=== PATIENT | female | born 1980 | race Caucasian/White ===

== ENCOUNTER 2021-05-29 10:03 | Emergency (ER) | payer OTHER, SELFPAY ==
--- NOTE | 2021-05-29 10:05 | ED.URI ---
HPI - URI/Sore Throat General Chief Complaint: Upper Respiratory Infection Stated Complaint: sore throat Time Seen by Provider: 05/29/21 10:08 Source: patient and RN notes reviewed History of Present Illness HPI Narrative: Patient is a 40-year-old female who presents the urgent care with complaints of a sore throat since last week. Patient denies of any fever, nausea, vomiting. Patient denies of cough. Patient states that all of her children had croup last week but no one was diagnosed with bacterial infection. Denies of any known exposure to strep or Covid. Patient is Covid vaccinated. Patient has been taking Benites's for the sore throat. No other acute complaints. No acute distress noted. Patient read the plan of care. Some parts of this dictation were generated by voice recognition software and may contain typographical and/or grammatical inaccuracies. Related Data Home Medications Medication Instructions Recorded Confirmed norgestimate-ethinyl estradiol tablet 07/25/19 [Estarylla] Allergies Allergy/AdvReac Type Severity Reaction Status Date / Time No Known Allergies Allergy Unknown Verified 05/29/21 10:12 Review of Systems Review of Systems: CONSTITUTIONAL: Denies fever, chills, or sweats. EYES: Denies visual changes, redness, or discharge. ENT: Denies rhinorrhea, congestion, otalgia. Reports of sore throat CARDIOVASCULAR: Denies chest pain, palpitations, or edema. RESPIRATORY: Denies cough or dyspnea. GASTROINTESTINAL: Denies abdominal pain, nausea, vomiting, or diarrhea. GENITOURINARY: Denies dysuria or hematuria. SKIN: Denies rash or itching. MUSCULOSKELETAL: Denies back pain, joint pain, or myalgia. NEUROLOGIC: Denies headache, numbness, or weakness. All other systems reviewed are negative, except as documented in HPI. [facility] Past Medical History Medical History (Updated 05/29/21 @ 10:25 by JOHN Simms) HELLP syndrome 2014 Ulcerative proctitis Surgical History Surgical History (Updated 07/25/19 @ 09:42 by JOHN Kate) H/O colonoscopy H/O: X2 Family History Family History (Updated 02/04/16 @ 23:19 by DOCTOR UNKNOWN) Grandparent Cerebrovascular accident Family history of lung cancer Family history of malignant neoplasm of breast Mother Family history of diabetes mellitus in first degree relative Social History Social History (Updated 07/25/19 @ 09:42 by JOHN Kate) Smoking status: Never smoker Alcohol intake: current Alcohol use details: Socially Substance use: never Gender identity (if verbalized by the patient): Female Comments At the time of my signature, I reviewed and agree with the nursing past medical, surgical, social, and family history. There is no relevant family history pertinent to the patient complaint. Exam Narrative: GENERAL: This is a well-nourished, well-developed patient, in no apparent distress. HEAD: normocephalic, atraumatic. EYES: PERRL. Sclera clear/white. Vision is grossly intact. EARS: External ears normal, auditory canals clear and without drainage, mild fluid noted behind bilateral TMs without otitis. TMs normal without perforation. Hearing grossly intact. NOSE: External nose normal with no obvious nasal discharge, nares without redness, no rhinorrhea. THROAT: Mucous membranes moist, posterior pharynx clear. Mild postnasal drainage. NECK: Neck supple CARDIOVASCULAR: Regular rate and rhythm without murmurs, gallops, or rubs. RESPIRATORY: Clear to auscultation. Breath sounds equal bilaterally. No wheezes, rales, or rhonchi. SKIN: warm, intact with no suspicious lesions or rash, good texture and turgor. NEURO: awake, alert, and oriented to person, place and time. There were no obvious focal neurologic abnormalities. EXTREMITIES: No clubbing, cyanosis, or edema. Course Vital Signs Vital signs: Vital Signs Temperature 99.4 F 05/29/21 10:08 Pulse Rate 106 H 05/29/21 10:08
[2021-05-29 10:08] VITALS: BP 153/93; PULSE 106; RESP 14; TEMP 37.4; O2SAT 100
== END 2021-05-29 10:30 | disposition home or self-care (01) ==
PROVIDERS: Emergency Provider Nurse Practitioner Family
DX: J02.9 Acute pharyngitis, unspecified (principal)
CPT/HCPCS: 87081; 87880; 99213; G0463

== ENCOUNTER → 2022-07-21 11:18 | Outpatient (CLI) | payer OTHER, SELFPAY ==
--- NOTE | ~2022-07-21 | US_ITS ---
EXAMINATION: US thyroid DATE: 07/21/2022 11:44 INDICATION: Nontoxic single thyroid nodule. TECHNIQUE: Multiple ultrasound images of the thyroid were obtained. COMPARISON: None. FINDINGS: The right thyroid lobe measures 4.6 x 0.9 x 1.0 cm. The left thyroid lobe measures 4.1 x 0.8 x 1.1 c m. In the right thyroid lobe, there is a 2 mm nodule. In the right thyroid isthmus, there is a 4 mm nodule. In the left thyroid lobe, there is a 1.3 cm solid, hypoechoic, wider than tall nodule with lo bulated margin and punctate echogenic focus (TI-RADS TR5). In the left thyroid lobe, there is a 10 mm solid, hypoechoic, wider than tall nodule with smooth margin without echogenic foci (TR4). IMPRESSION: 1. Multinodular goiter. Ultrasound-guided fine-needle aspiration of the 1.3 cm left thyroid nodule is recommended. Reviewed, dictated and finalized at location A. O WORKER
== END ==
PROVIDERS: PCP Advanced Practice Midwife; Visit Provider Advanced Practice Midwife
DX: E04.2 Nontoxic multinodular goiter (principal)
CPT/HCPCS: 76536

== ENCOUNTER 2024-05-12 13:47 | Outpatient (CLI) | payer OTHER, SELFPAY ==
--- NOTE | ~2024-05-12 | MM_ITS ---
EXAMINATION: MM screening annabelle BI w gala HISTORY: Screening TECHNIQUE: Craniocaudal and mediolateral oblique 3-D tomosynthesis images were obtained and synthetic 2-D images were generated. CAD analysis was submitted and interpreted. COMPARISON: 12/11/2022 BREAST PARENCHYMAL COMPOSITION: Dense: The breasts are heterogeneously dense, which may obscure small masses FINDINGS: There is no evidence of suspicious mass, calcification, or architectural distortion to sugg est malignancy in either breast. There has been no suspicious interval change. IMPRESSION: 1. No mammographic evidence of malignancy. 2. Recommend routine screening mammography in one year. BI-RADS Category 1: Negative Reviewed, dictated and finalized at location B. NEERING TECHNICIAN PARKING
== END 2024-05-12 13:48 | disposition home or self-care (01) ==
PROVIDERS: PCP Obstetrics & Gynecology Gynecology; Visit Provider Obstetrics & Gynecology Gynecology
DX: Z12.31 Encounter for screening mammogram for malignant neoplasm of breast (principal)
CPT/HCPCS: 77063; 77067

== ENCOUNTER 2025-03-17 08:08 | Emergency (ER) | payer OTHER, SELFPAY ==
[2025-03-17 08:17] VITALS: BP 154/96; PULSE 86; RESP 16; TEMP 36.9; O2SAT 100
--- OUTSIDE RECORDS SUMMARY | 2025-03-17 08:33 | XMS_ITS | Encounter Summary ---
Author Organization [facility] Address [address] [place] [address] Care Team Providers Care Solder Leveler Printed Circuit Boards Name Role Phone Leatha Wilson MD Primary Care Provider [phone] Encounter Details Date Type Department Care Team (Late st Contact Info) Description 01/19/2022 Lab Requisition [facility] Care DermPath Lab [address] [place] [address] Gerber Mojica MD [address] [place] [address] Social History Tobacco Use Types Packs/Day Years Used Date Smoking Tobacco: Never Alcohol Use Standard Drinks/Week Comments Yes 0 (1 standard drink = 0.6 oz pur e alcohol) very rarely when not Comments No Sex and Gender Information Value Date Recorded Sex Assigned at Not on file Legal Sex Female 7:14 AM CDT Gender Identity Not on file Sexual Orientation Not on file documented as of this encounter Functional Status * Is person deaf or have serious hearing difficulty? Answer Date of Assessment Author No 09/14/2015 9:47 AM Marii Chopra RN * Is person blind or have serious difficulty seeing? Answer Date of Assessment Author No 09/14/2015 9:47 AM Marii Chopra RN * Does person have serious difficulty walking/climbing stairs? Answer Date of Assessment Author No 09/14/2015 9:47 AM Marii Chopra RN * Does person have difficulty dressing/bathing? Answer Date of Assessment Author No 09/14/2015 9:47 AM Marii Chopra RN * Does person have difficulty doing errands alone? Answer Date of Assessment Author No 09/14/2015 9:47 AM Marii Chopra RN documented as of this encounter Mental Status * Does person have difficulty concentrating/remembering/making decisions? Answer Entry Date Author No 09/14/2015 9:47 AM Marii Chopra RN documented in this encounter Plan of Treatment Not on file documented as of this encounter Procedures Procedure Name Priority Date/Time Associated Diagnosis Comments DERMATOPATHOLOGY Routine 01/18/2022 3:33 AM CDT documented in this encounter Results * DERMATOPATHOLOGY (01/18/2022 3:33 AM CDT) Case Report Dermatopathology Report Case: [id number] Authorizing Provider: Gerber Mojica MD Collected: 01/18/2022 03:33 AM Ordering Location: [facility] DermPath Lab Received: 01/19/2022 02:53 PM Pathologist: Mariela Sargent MD Specimens: A) - Skin, nasal bridge above bulb B) - Skin, left upper paraspinal back 2 12:49 PM CDT DERMATOPATHOLOGY LABORATORY Final Diagnosis Specimen A. 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 SKIN, left upper paraspinal back: COMPOUND NEVUS WITH CONGENITAL FEATURES (D22.5) 2 12:49 PM CDT DERMATOPATHOLOGY LABORATORY at 1249 CDT Clinical History A: R/O BCC. B: R/O dys nevus. 12:49 PM CDT DERMATOPATHOLOGY LABORATORY Gross Description Specimen A: Received is one formalin filled container labeled with the patient's name and designated nasal bridge above bulb. The specimen consists of a shave biopsy measuring [id number]. Jar 0. Specimen B: Received is one formalin filled container labeled with the patient's name and designated left upper paraspinal back. The specimen consists of a shave biopsy measuring [id number]. Jar 0. 2 12:49 PM T DERMATOPATHOLOGY LABORATORY Microscopic Description Specimen A. SKIN, nasal bridge above bulb: Sections show a lobular tumor composed of aggregates of epithelial cells extending from the epidermis into the dermis. The aggregates are composed of squamoid cells showing variable glycogen vacuolation (pale-staining cytoplasm). The tumor stains with CD34 but is negative for BerEP4. Mib-1 reveals a low proliferative index within the lesion. Additional deeper sections were obtained and reviewed. Specimen B. SKIN, left upper paraspinal back: There are nests of melanocytes at the dermal-epidermal junction and within the dermis. Some melanocytes are splayed between collagen bundles and are localized around adnexal structures. 2 12:49 PM T DERMATOPATHOLOGY LABORATORY Disclaimer An external and internal positive and negative controls are appropriate for the histochemical, immunohistochemical and immunofluorescence stain(s) in this case (if any), except where stated explicitly. The performance characteristics of the stain(s) cited in this report were developed and its performance characteristic determined by the Dermatopathology Laboratory at [facility], directed by Dr. Caroline Ingram. These tests need not be, and therefore are not, approved by the [place] Food and Drug Administration. The tests are used for clinical purposes. Billing Codes Specimen Charges Stain Charges 19276 13781 1 1 40619 36763 16964 1 1 1 2 12:49 PM CDT DERMATOPATHOLOGY LABORATORY Embedded Images 2 12:49 PM CDT DERMATOPATHOLOGY LABORATORY Pathology/Cytology TISSUE SPECIMEN FROM SKIN / Unknown 01/18/2022 3:33 AM CDT 01/19/2022 2:53 PM CDT Miscellaneous samples (specimen) TISSUE SPECIMEN FROM SKIN / Unknown 01/18/2022 3:33 AM CDT 01/19/2022 2:53 PM CDT Gerber Mojica MD LAB - PATHOLOGY/CYTOLOGY ORD ERABLES Final Result DERMATOPATHOLOGY LABORATORY [facility] - Department of Dermatology [address] [phone] documented in this encounter Visit Diagnoses Not on filedocumented in this encounter Care Teams Solder Leveler Printed Circuit Boards Relationship Specialty Start Date End Date Leatha Wilson MD PCP - General Family Medicine 09/14/15 documented as of this encounter
--- OUTSIDE RECORDS SUMMARY | 2025-03-17 08:33 | XMS_ITS | Clinical Summary ---
Author Organization [facility] Address [address] [place] [address] Care Team Providers Care Journeyman Molder Name Role Phone Leatha Wilson MD Primary Care Provider [phone]- [phone] Source Comments [facility],non-owned Affiliates and Associated Physician Practices is amultiple site organization consisting of ambulatory clinics and hospital sitesin [place], [place], [place] and [place]. This disclosure is being madepursuant to the Care Everywhere program and may not contain all information available regarding this patient. Last updated 18.[facility] Allergies No known active allergies Medications * Be aware that medications may not be up to date on this document. Alwaysverify current medications with the patient. oxyCODONE-aceta minophen (PERCOCET) 5-325 MG tablet Take 1 Tab by mouth every 4 hours as needed 60 Tab 0 6 Active Ughzxnul-Yww-Ow -FA ( VITAMIN WITH IRON) tablet Take 1 Tab by mouth once daily 90 Tab 3 6 Active lanolin (LANOLIN) ointment Apply to affected area as needed for Dry Skin 1 g 1 6 Active ibuprofen (MOTRIN) 600 MG tablet Take 1 Tab by mouth every 6 hours as needed for Pain 60 Tab 0 6 Active docusate sodium (COLACE) 100 MG capsule Take 1 Cap by mouth 2 times daily 90 Cap 3 6 Active ferrous sulfate 325 (65 FE) MG tablet Take 1 Tab by mouth daily with breakfast 90 Tab 3 6 Active Active Problems Patient Care Coordination No te Formatting of this note migh t be different from the original. [place] [facility] Problem Noted Date Diagnosed Date H/O section 09/14/2015 H/O HELLP syndrome, currently 6 Rh negative, antepartum 07/17/2013 Overview (10/02/2015): 2015 IMO Updt Supervision of other high risk , antepa rtum 04/01/2013 Overview (09/14/2015): state Status post delivery Resolved Problems Problem Noted Date Diagnosed Date Resolved Date Preeclampsia 09/22/2013 09/14/2015 Dichorionic diamniotic twin gestation 07/17/2013 09/14/2015 Overview (07/17/2013): Concordant growth on 07/11/2013 Baby A: 729 gm, Baby B 696 gm Twins 04/01/2013 07/17/2013 resulting from in vitro fertilization 04/01/2013 09/14/2015 Immunizations Immunization Administration Dates Next Due TDAP (7yrs+) 09/30/2013 Social History Tobacco Use Types Packs/Day Years Used Date Smoking Tobacco: Never Alcohol Use Standard Drinks/Week Comments Yes 0 (1 standard drink = 0.6 oz pur e alcohol) very rarely when not Comments No Sex and Gender Information Value Date Recorded Sex Assigned at Not on file Legal Sex Female 7:14 AM CDT Gender Identity Not on file Sexual Orientation Not on file Last Filed Vital Signs Vital Sign Reading Time Taken Comments Blood Pressure 112/74 10/28/2015 12:56 PM CDT Pulse 72 10/28/2015 12:56 PM CDT Temperature 36.8 C (98.2 F) 09/18/2015 8:50 AM ORTHOTIST PROSTHETIST Respiratory Rate 16 10/28/2015 12:56 PM CDT Oxygen Saturation 100% 09/17/2015 11:00 PM ORTHOTIST PROSTHETIST Inhaled Oxygen Concentration - - Weight 55.8 kg (123 lb) 10/28/2015 12:56 PM CDT Height 160 cm (5' 3) 10/28/2015 12:56 PM CDT Body Mass Index 21.79 10/28/2015 12:56 PM CDT Plan of Treatment Health Maintenance Due Date Last Done Comments LIPID TESTING 1982 MAMMOGRAM 1982 HEPATITIS C SCREENING 05/29/2000 HEPATITIS B VACCINE (1 of 3 - 19+ 3-dose series) 2001 HPV VACCINE (1 - 3-dose SCDM series) 2009 DTAP/TDAP/TD VACCINES (2 - T d or Tdap) 10/01/2023 09/30/2013 DEPRESSION SCREENING 07/09/2024 COVID-19 VACCINE (1 - 2023-2 5 season) 2025 INFLUENZA VACCINE (#1) 2025 ZOSTER VACCINE (1 of 2) 2032 HIV SCREENING Completed 03/18/2015, 07/10/2013 HIB VACCINE Aged Out No longer eligi ble based on patient's age to complete this topic MENINGOCOCCAL (Group B) VACCINE SHARED DECISION-MAKING Aged Out No longer eligible based on patient's age to complete this topic MENINGOCOCCAL GROUPS A/C/Y/W VACCINE Aged Out No longer eligible b ased on patient's age to complete this topic PNEUMOCOCCAL VACCINE Aged Out No long er eligible based on patient's age to complete this topic Procedures Procedure Name Priority Date/Time Associated Diagnosis Comments HIV-1 HIV-2 ANTIGEN/ANTIBODY Routine 03/18/2015 2:38 PM CDT from Last 3 Months or Most Recently Relevant to Health Maintenance Results * HIV-1 HIV-2 ANTIGEN/ANTIBODY (03/18/2015 2:38 PM CDT) Pathologist [facility] HIV Antigen/Antibody 4th Generation NON-REACT SCHUYLER NON-REACT SCHUYLER QUEST (SLU) Comment: A Nonreactive HIV Ag/Ab result does not exclude HIV infection since the time frame for seroconversion is variable. If acute HIV infection is suspected, a HIV-1 RNA Qualitative TMA test is recommended. PLEASE NOTE: This information has been disclosed to you from records whose confidentiality may be protected by state law. If your state requires such protection, then the state law prohibits you from making any further disclosure of the information without the specific written consent of the person to whom it pertains, or as otherwise permitted by law. A general authorization for the release of medical or other information is NOT sufficient for this purpose. The performance of this assay has not been clinically validated in patients less than 2 years old. For additional information please refer to http://education.OneFineMeal/faq/JWW195 (This link is being provided for informational/ educational purposes only.) REPORT COMMENT: PREFERRED LAB:->[facility]; PREFERRED LAB:->[facility] FASTING:UNKNOWN Test Performed at[facility] [address] [place] [address] STEVE GO DO,MPH 03/18/2015 2:38 PM CDT 03/18/2015 2:40 PM CDT us Historical Provider LAB - HEMATOLOGY ORDERABL ES Edited Result - Final [facility]) [id number] from Last 3 Months or Most Recently Relevant to Health Maintenance Insurance T AETNA Advance Directives * Full Code (Latest Code Status on File) Date Activated Date Inactivated Comments 09/14/2015 3:12 PM 09/18/2015 2:09 PM * Full Code Date Activated Date Inactivated Comments 09/14/2015 9:04 AM 09/14/2015 12:59 PM * Full Code Date Activated Date Inactivated Comments 09/23/2013 3:11 AM 09/23/2013 4:23 AM * Full Code Date Activated Date Inactivated Comments 09/22/2013 12:56 PM 09/23/2013 3:11 AM Care Teams Journeyman Molder Relationship Specialty Start Date End Date Leatha Wilson MD PCP - General Family Medicine 09/14/15
--- OUTSIDE RECORDS SUMMARY | 2025-03-17 08:33 | XMS_ITS | Clinical Summary ---
Author Organization [facility] Address [address] [facility] [address], [address] [address] Phone Care Team Providers Care Mechanical Engineering Coop Name Role Phone Bobbi Carrizales Primary Care Provider + Allergies No known active allergies Medications Norgestimate-Eth Estradiol 0.25-35 MG-MCG Tablet Take 1 Tab by mouth daily. Active Active Problems Problem Noted Date Diagnosed Date Ulcerative proctitis 10/17/2019 Immunizations Immunization Administration Dates Next Due TDAP Vaccine 09/30/2013 Family History Medical History Relation Name Comments Cancer Maternal Grandmother breast Diabetes Mother Other-comment Paternal Grandmother Benign colon tumor. Relation Name Status Comments Father Alive Maternal Grandmother Mother Alive Paternal Grandmother Social History Tobacco Use Types Packs/Day Years Used Date Smoking Tobacco: Never Smokeless Tobacco: Never Tobacco Cessation:Counseling Given: Yes Alcohol Use Standard Drinks/Week Comments Not Currently 0 (1 standard drink = 0.6 oz pur e alcohol) [facility] Utilities Answer Date Recorded In the past 12 months has [facility], gas, oil, or water company threatened to shut off services in your home? No 12/31/2023 Social Connection and Isolation Panel Answer Date Recorded In a typical week, how many times do you talk on the phone with family, friends, or neighbors? More than three times a week 12/31/2023 How often do you get togethe r with friends or relatives? Once a week 12/31/2023 How often do you attend chur or jainism services? Patient declined 12/31/2023 Do you belong to any clubs o r organizations such as denominational groups, unions, fraternal or athletic groups, or school groups? Yes 12/31/2023 How often do you attend meet ings of the clubs or organizations you belong to? Patient declined 12/31/2023 Are you , , di vorced, , never , or living with a partner? 12/31/2023 AUDIT-C Answer Date Recorded Q1: How often do you have a drink containing alcohol? Never 12/31/2023 Q2: How many drinks containi ng alcohol do you have on a typical day when you are drinking? Patient does not drink Q3: How often do you have si x or more drinks on one occasion? Never 12/31/2023 Overall Financial Resource Strain (CARDIA) Answe r Date Recorded How hard is it for you to pa y for the very basics like food, housing, medical care, and heating? Not very hard 12/31/2023 PHQ-2 Answer Date Recorded Total Score - Questions 1-9 0 06/09 [facility] of Occupat ional [facility] - Occupational Stress Questionnaire Answer Date Recorded Do you feel stress - tense, restless, nervous, or anxious, or unable to sleep at night because your mind is troubled all the time - these days? To some extent 12/31/2023 Exercise Vital Sign Answer Date Recorde d On average, how many days pe r week do you engage in moderate to strenuous exercise (like a brisk walk)? Patient declined On average, how many minutes do you engage in exercise at this level? Patient declined 12/31/2023 Hunger Vital Sign Answer Date Recorded Within the past 12 months, y ou worried that your food would run out before you got the money to buy more. Never true 12/31/19 Within the past 12 months, t he food you bought just didn't last and you didn't have money to get more. Never true 12/31/2023 PRAPARE - Transportation Answer Date Re corded In the past 12 months, has l ack of transportation kept you from medical appointments or from getting medications? No 12/08 In the past 12 months, has l ack of transportation kept you from meetings, work, or from getting things needed for daily living? No 12/31/2023 Housing Stability Vital Sign Answer Omar e Recorded In the last 12 months, was t here a time when you were not able to pay the mortgage or rent on time? No 12/31/2023 In the past 12 months, how m any times have you moved where you were living? 0 12/31/2023 At any time in the past 12 m [facility], were you homeless or living in a group home (including now)? No 12/31/2023 Education Answer Date Recorded What is the highest level of school you have completed or the highest degree you have received? 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 Gender Identity Not on file Sexual Orientation Not on file Last Filed Vital Signs Vital Sign Reading Time Taken Comments Blood Pressure 124/82 01/02/2024 1:48 PM CDT Pulse 91 01/02/2024 1:48 PM CDT Temperature 36.7 C (98 F) 01/02/2024 1:48 PM CDT Respiratory Rate 18 09/21/2022 1:09 PM CDT Oxygen Saturation 98% 01/02/2024 1:48 PM CDT Inhaled Oxygen Concentration - - Weight 60.8 kg (134 lb) 01/02/2024 1:48 PM CDT Height 160 cm (5' 3) 01/02/2024 1:48 PM CDT Body Mass Index 23.74 01/02/2024 1:48 PM CDT Plan of Treatment Health Maintenance Due Date Last Done Comments Mammogram 1982 Hepatitis B Immunization (1 of 3 - 19+ 3-dose series) 2001 Pap Smear 2003 Human Papillomavirus (HPV) Immunization (1 - 3-dose SCDM series) 2009 Discussion re Starting/Frequency of Mammograms 2022 Colonoscopy 10/21/2022 10/21/2021, 07/11/2019 Colorectal Cancer Screening 10/21/2022 Td Immunization Every 10 Yea rs (Adults With 1 Tdap) 10/01/2023 09/30/2013 Influenza Immunization (#1) 2025 SARS-COV-2 Immunization ( season) 2025 12/24/2020, 12/03/2020 Cervical Cancer Screening (CCS) 07/10/2028 HPV/Cotest 07/10/2028 07/10/2023 Respiratory Syncytial Virus (RSV) Immunization (Adult) (1 - 1-dose 75+ series) 2057 DTaP/Tdap/Td Immunization Discontinued 09/30/2013 Hepatitis C Virus (HCV) Screening Discontinued Meningococcal Immunization (ACWY) Aged Out No longer eligible based on patient's age to complete this topic Pneumococcal Immunization Combined Aged Out No longer eligible based on patient's age to complete this topic Rotavirus Immunization Aged Out No lo nger eligible based on patient's age to complete this topic Insurance People to Remember Care Teams Mechanical Engineering Coop Relationship Specialty Start Date End Date Bobbi Carrizales [address] [place] [address] PCP - General Physician Heel Gouger 06/27/21
--- OUTSIDE RECORDS SUMMARY | 2025-03-17 08:33 | XMS_ITS | Patient Health Record ---
Author Organization [facility] Address [address] [place] [address] Care Team Providers Care Chief Physical Therapist Name Role Phone Nat MENDENHALL, [facility] [phone] Reason For Referral No Information Medications Medication SIG (Take, Route, Fr equency, Duration) Notes Start Date End Date Status NIFEdipine ER 30 MG 1 tablet Orally Once a day Active Problems Problem Type SNOMED Code ICD Code Onset Dates Problem Status W/U Status Risk Notes Problem Severe pre-eclampsi a, with delivery (642.51) Active confirmed HELLP syndrome- - The patient presented with the symptoms highlighted above, with marked resolution and improvement. My impression is that her kidney function is normal and will remain so. Furthermore, I suspect the hematologic manifestations will have completely reversed. Whether she has persistent hypertension due to remains to be determined. In the interim, she will be continued on long acting Nifedipine with the drug stopped at a later date should her blood pressure remain normal and/or fall. Plan Of Treatment No Information Insurance Providers Payer Name Payer Address Payer Phone Subscriber Number Group Number Insured Name Patient Relationship to Insured Coverage Start Date Coverage End Date [facility] [address] [place] [address] [id number] Mi Barrow Self - patient is the insured
--- OUTSIDE RECORDS SUMMARY | 2025-03-17 08:36 | XMS_ITS | Clinical Summary ---
Author Organization [facility] Address [address] [place] [address] Care Team Providers Care Slab Depiler Operator Name Role Phone Harlan Shelton MD Primary Care Provider [phone] Allergies No known active allergies Medications ESTARYLLA 0.25-35 MG-MCG tablet daily. 08/18/2022 Active amoxicillin-clav ulanate (AUGMENTIN) 875-125 MG tablet Take 1 tablet (875 mg total) by mouth 2 (two) times daily. 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 H/O HELLP syndrome, currently ([facility]) 09/14/2015 History of uterine scar from previous surgery Rh negative, antepartum ([facility]) 07/17/2013 Overview (08/25/2022): 2015 IMO Updt Immunizations Immunization Administration Dates Next Due Tdap (Generic) 09/30/2013 Family History Medical History Relation Comments Cancer Maternal Grandmother Breast Diabetes Mother Borderline Relation Status Comments Maternal Grandmother Mother Alive Social History Tobacco Use Types Packs/Day Years Used Date Smoking Tobacco: Never Smokeless Tobacco: Never Tobacco Cessation:Counseling Given: Not Answered Alcohol Use Standard Drinks/Week Comments Never 0 (1 standard drink = 0.6 oz pur e alcohol) PHQ-2 Answer Date Recorded Patient Health Questionnaire-2 Score 0 08/25/2022 Comments Unknown Sex and Gender Information Value Date Recorded Sex Assigned at Not on file Legal Sex Female 2:39 PM CYLINDRICAL MIXER Gender Identity Not on file Sexual Orientation Not on file Last Filed Vital Signs Vital Sign Reading Time Taken Comments Blood Pressure 102/68 08/25/2022 7:53 AM CYLINDRICAL MIXER Pulse 95 08/25/2022 7:53 AM CYLINDRICAL MIXER Temperature 36.6 C (97.9 F) 08/25/2022 7:53 AM CYLINDRICAL MIXER Respiratory Rate 20 08/25/2022 7:53 AM CYLINDRICAL MIXER Oxygen Saturation 100% 08/25/2022 7:53 AM CYLINDRICAL MIXER Inhaled Oxygen Concentration - - Weight 55.8 kg (123 lb) 09/27/2022 12:01 AM CDT Height 160 cm (5' 3) 09/27/2022 12:01 AM CDT Body Mass Index 21.79 09/27/2022 12:01 AM CDT Plan of Treatment Health Maintenance Due Date Last Done Comments Annual Physical 1985 Hepatitis C 2000 Hepatitis B Vaccines (1 of 3 - 19+ 3-dose series) 2001 HPV Vaccines (1 - 3-dose SCD M series) 2009 Cervical Cancer Screening Pa p Smear (Age 30 to 64) Every 3 Years 05/18/2020 05/18/2017 Cervical Cancer Screening Pa p with HPV Testing (Age 30 to 64) Every 5 Years 05/18/2022 05/18/2017 Cervical Cancer Screening wi th HPV 05/18/2022 Mammogram Screening 2022 DTaP, Tdap and Td Vaccines ( 2 - Td or Tdap) 10/01/2023 09/30/2013 COVID-19 Vaccine (3 - 2024-2 6 season) 2025 12/24/2020, 12/03/2020 Meningococcal B Vaccine Aged Out No l onger eligible based on patient's age to complete this topic Meningococcal Vaccine Aged Out No donato chucho eligible based on patient's age to complete this topic Pneumococcal Vaccine: Pediatrics (0 to 5 Years) and At-Risk Patients (6 to 49 Years) Aged Out No longer eligible b ased on patient's age to complete this topic RSV Immunizations Under 20 Months Aged Out No longer eligible b ased on patient's age to complete this topic Insurance AETNA Care Teams Slab Depiler Operator Relationship Specialty Start Date End Date Harlan Shelton MD PCP - General OBGYN 08/16/22
--- NOTE | 2025-03-17 08:42 | ED.GENADULT ---
HPI - General Adult General Chief complaint: Eye Problems Stated complaint: Eye Problem Source: patient Mode of arrival: ambulatory Limitations: no limitations History of Present Illness HPI narrative: Patient presents for evaluation of redness to the left eye since early this morning. She woke from sleep with her left eye matted shut. She also had drainage from the left eye. She denies visual disturbance. She has associated discomfort but denies pruritus. She does not were glasses or contacts. No recent sick contacts to her knowledge. No fever, chills, sore throat, cough. Related Data Home Medications ?Medication ?Instructions ?Recorded ?Confirmed ?Last Taken ?Type norgestimate 0.25 mg-ethinyl 1 tablet PO DAILY 07/25/19 05/29/21 Unknown History estradiol 0.035 mg tablet (Estarylla) Allergies Allergy/AdvReac Type Severity Reaction Status Date / Time No Known Allergies Allergy Unknown Verified 03/17/25 08:17 Review of Systems Review of Systems: CONSTITUTIONAL: Denies fever, chills, or sweats. EYES:Reports left eye redness, discomfort, drainage and matting. Denies itching and visual disturbance ENT: Denies rhinorrhea, congestion, sore throat, or otalgia. CARDIOVASCULAR: Denies chest pain, palpitations, or edema. RESPIRATORY: Denies cough or dyspnea. GASTROINTESTINAL: Denies abdominal pain, nausea, vomiting, or diarrhea. GENITOURINARY: Denies dysuria or hematuria. SKIN: Denies rash or itching. MUSCULOSKELETAL: Denies back pain, joint pain, or myalgia. NEUROLOGIC: Denies headache, numbness, dizziness, or weakness. PSYCHIATRIC: Denies anxiety or depression. [facility] Past Medical History Medical History Ulcerative proctitis HELLP syndrome 2014 Surgical History Surgical History H/O: X2 H/O colonoscopy Family History Family History Grandparent Cerebrovascular accident Family history of lung cancer Family history of malignant neoplasm of breast Mother Family history of diabetes mellitus in first degree relative Social History Social History Smoking status: Never smoker Alcohol intake: current Alcohol use details: Socially Substance use: never Living arrangements: with family Occupation/Education: occupation Gender identity (if verbalized by the patient): Female Exam Narrative: GENERAL: Well-appearing, well-nourished, and in no acute distress. HEAD: Normocephalic, atraumatic. EYES: Left conjunctival injection. PERRLA and EOMI. ENT: Nares clear, no rhinorrhea or epistaxis. Mucous membranes moist. Oropharynx without tonsillar hypertrophy exudate or other lesions. Bilateral TMs pearly ambriz nonbulging NECK: Supple. No adenopathy or masses. No carotid bruits or JVD CHEST: Clear to auscultation. No respiratory distress. No wheezes rales or rhonchi HEART: Regular rate and rhythm. No murmur heard. Normal peripheral pulses. ABDOMEN: Soft, nontender, nondistended, normal active bowel sounds. EXTREMITIES: Normal range of motion. No edema. SKIN: Warm, dry, no rash. NEURO: No focal deficits. Alert and oriented x3. PSYCH: Normal mood and affect. Course Course Emergency Course: This is a 44-year-old female who presented for evaluation of left eye redness, drainage and matting. Exam consistent with bacterial conjunctivitis. Will treat with erythromycin. Follow-up with primary provider. Go to the ER for worsening symptoms. Patient in agreement with of care Level of Care: Express Care Visit Vital Signs Vital signs: Vital Signs Temperature 36.9 C 03/17/25 08:17 Pulse Rate 86 03/17/25 08:17 Respiratory Rate 16 03/17/25 08:17 Blood Pressure 154/96 H 03/17/25 08:17 Pulse Oximetry 100 03/17/25 08:17 Oxygen Delivery Room Air 03/17/25 08:17 Temperature 36.9 C 03/17/25 08:17 Pulse Rate 86 03/17/25 08:17 Respiratory Rate 16 03/17/25 08:17 Blood Pressure 154/96 H 03/17/25 08:17 Pulse Oximetry 100 03/17/25 08:17 Oxygen Delivery Room Air 03/17/25 08:17 Medical Decision Making Vital Signs Vital Signs: Vital Signs Temperature 36.9 C 03/17/25 08:17 Pulse Rate 86 03/17/25 08:17 Respiratory Rate 16 03/17/25 08:17 Blood Pressure 154/96 H 03/17/25 08:17 Pulse Oximetry 100 03/17/25 08:17 Oxygen Delivery Room Air 03/17/25 08:17 Temperature 36.9 C 03/17/25 08:17 Pulse Rate 86 03/17/25 08:17 Respiratory Rate 16 03/17/25 08:17 Blood Pressure 154/96 H 03/17/25 08:17 Pulse Oximetry 100 03/17/25 08:17 Oxygen Delivery Room Air 03/17/25 08:17 Discharge Plan Discharge Clinical Impression: Conjunctivitis Patient Disposition: Home Condition: Stable Instructions: Antibiotic Form, Conjunctivitis (ED) Patient Language: Citizen Of [place] Prescriptions: New erythromycin 5 mg/gram (0.5 %) ointment 1 applic LEFT EYE 6XD Qty: 3.5 0RF No Action norgestimate-ethinyl estradiol [Estarylla] 0.25-35 mg-mcg tablet 1 tablet PO DAILY Follow-up/Referrals: Ramirez Reardon MD [Physician, Family Practice] Time of Disposition: 08:38
== END 2025-03-17 08:44 | disposition home or self-care (01) ==
PROVIDERS: Emergency Provider Nurse Practitioner
DX: H10.9 Unspecified conjunctivitis (principal)
CPT/HCPCS: 99213; G0463

== ENCOUNTER 2025-05-19 11:38 | Outpatient (CLI) | payer OTHER, SELFPAY ==
--- NOTE | ~2025-05-19 | MM_ITS ---
EXAMINATION: MM screening annabelle BI w gala HISTORY: Screening TECHNIQUE: Craniocaudal and mediolateral oblique 3-D tomosynthesis images were obtained and synthetic 2-D images were generated. CAD analysis was submitted and interpreted. COMPARISON: Comparison to multiple prior studies sequentially, with oldest reviewed study dated 12/11/2022. BREAST PARENCHYMAL COMPOSITION: Dense: The breasts are heterogeneously dense, which may obscure small masses FINDINGS: There is no evidence of suspicious mass, calcification, or architectural distortion to suggest malignancy in either breast. There has been no suspicious interval change. IMPRESSION: 1. No mammographic evidence of malignancy. 2. Recommend routine screening mammography in one year. BI-RADS Category 1: Negative Reviewed, dictated and finalized at location B. MAKER
--- OUTSIDE RECORDS SUMMARY | 2025-05-19 12:13 | XMS_ITS | Encounter Summary ---
Author Organization [facility] Address [address] [place] [address] Care Team Providers Care First Aid Trainer Name Role Phone Leatha Wilson MD Primary Care Provider [phone] Encounter Details Date Type Department Care Team (Late st Contact Info) Description 01/19/2022 Lab Requisition [facility] Care DermPath Lab [address] [place] [address] Gerber Mojica MD [address] [place] [address] Social History Tobacco Use Types [...] AM CDT) Case Report Dermatopathology Report Case: [id number] Authorizing Provider: Gerber Mojica MD Collected: 01/18/2022 03:33 AM Ordering Location: [facility] DermPath Lab Received: 01/19/2022 02:53 PM Pathologist: [...] A: R/O BCC. B: R/O dys nevus. 2 12:49 PM CDT DERMATOPATHOLOGY LABORATORY Gross Description Specimen A: Received is one formalin filled container labeled with the patient's name and designated nasal bridge above bulb. The specimen consists of a shave biopsy measuring [id number]. Jar 0. Specimen B: Received is one formalin filled container labeled with the patient's name and designated left upper paraspinal back. The specimen consists of a shave biopsy measuring [id number]. Jar 0. 2 12:49 PM T DERMATOPATHOLOGY [...] localized around adnexal structures. 2 12:49 PM CDT DERMATOPATHOLOGY LABORATORY Disclaimer An external and internal positive and negative controls are appropriate for the histochemical, immunohistochemical and immunofluorescence stain(s) in this case (if any), except where stated explicitly. The performance characteristics of the stain(s) cited in this report were developed and its performance characteristic determined by the Dermatopathology Laboratory at [facility], directed by Dr. Caroline Ingram. These tests need not be, and therefore are not, approved by the [place] Food and Drug Administration. The tests are used for clinical purposes. Billing Codes Specimen Charges Stain Charges 54322 89966 1 1 77527 32835 58744 1 1 1 2 12:49 PM CDT DERMATOPATHOLOGY LABORATORY Embedded Images 2 12:49 PM CDT DERMATOPATHOLOGY LABORATORY Pathology/Cytology TISSUE SPECIMEN FROM SKIN / Unknown 01/18/2022 3:33 AM CDT 01/19/2022 2:53 PM CDT Miscellaneous samples (specimen) TISSUE SPECIMEN FROM SKIN / Unknown 01/18/2022 3:33 AM CDT 01/19/2022 2:53 PM CDT Gerber Mojica MD LAB - PATHOLOGY/CYTOLOGY ORD ERABLES Final Result DERMATOPATHOLOGY LABORATORY [facility] - Department of Dermatology [address], [address] [phone] documented in this encounter Visit Diagnoses Not on filedocumented in this encounter Care Teams First Aid Trainer Relationship Specialty Start Date End Date Leatha Wilson MD PCP - General Family Medicine 09/14/15 documented as of this encounter
--- OUTSIDE RECORDS SUMMARY | 2025-05-19 12:13 | XMS_ITS | Clinical Summary ---
Author Organization [facility] Address [address] [facility] [place] [address] Care Team Providers Care Surface Room Shop Optician Name Role Phone Leatha Wilson MD Primary Care Provider [phone] Source Comments [facility],non-owned Affiliates and Associated Physician Practices is amultiple site organization consisting of ambulatory clinics and hospital sitesin [place], [place], [place] and [place]. This disclosure is being madepursuant to the Care Everywhere program and may not contain all information available regarding this patient. Last updated 18.[facility] Allergies No known active allergies Medications * Be aware that medications may not be up to date on this document. Alwaysverify current medications with the patient. oxyCODONE-aceta minophen (PERCOCET) 5-325 MG tablet Take 1 Tab by mouth every 4 hours as needed 60 Tab 0 6 Active Wjwqfmzy-Omv-Jg -FA ( VITAMIN WITH IRON) tablet Take [...] from the original. Patient transferred care to [facility] [place] Problem Noted Date Diagnosed Date H/O section [...] 36.8 C (98.2 F) 09/18/2015 8:50 AM WELDING INSTRUCTOR Respiratory Rate 16 10/28/2015 12:56 PM CDT Oxygen Saturation 100% 09/17/2015 11:00 PM WELDING INSTRUCTOR Inhaled Oxygen Concentration - - Weight 55.8 [...] HIV-1 HIV-2 ANTIGEN/ANTIBODY (03/18/2015 2:38 PM CDT) HIV Antigen/Antibody 4th Generation NON-REACT SCHUYLER NON-REACT [...] old. For additional information please refer to http://education.Cervalis/faq/OJC125 (This link is being provided for informational/ educational purposes only.) REPORT COMMENT: PREFERRED LAB:->[facility]; PREFERRED LAB:->[facility] FASTING:UNKNOWN Test Performed at: [facility] [address] [place] [address] STEVE GO DO,MPH 03/18/2015 2:38 PM CDT 03/18/2015 2:40 PM CDT us Historical Provider LAB - HEMATOLOGY ORDERABL ES Edited Result - Final [facility]) [id number] from Last 3 Months or Most Recently Relevant to Health Maintenance Insurance AET AETNA Advance Directives * Full Code (Latest [...] 12:56 PM 09/23/2013 3:11 AM Care Teams Surface Room Shop Optician Relationship Specialty Start Date End Date Leatha Wilson MD PCP - General Family Medicine 09/14/15
--- OUTSIDE RECORDS SUMMARY | 2025-05-19 12:13 | XMS_ITS | Clinical Summary ---
Author Organization [facility] Address [address] [facility], [address] [address] Phone Care Team Providers Care Loans Officer Name Role Phone Bobbi Carrizales Primary Care [...] drink = 0.6 oz pur e alcohol) [facility] Utilities Answer Date Recorded In the past 12 months has [employer], gas, oil, or water company threatened to [...] How often do you attend chur or restorationism services? Patient declined 12/31/2023 Do you belong to any clubs o r organizations such as bahai groups, unions, fraternal or athletic groups, or [...] Total Score - Questions 1-9 0 06/09 [facility] of Occupat ional [facility] - Occupational Stress Questionnaire Answer Date Recorded [...] in the past 12 m [facility], were you homeless or living in a detention (including now)? No 12/31/2023 Education Answer Date Recorded What is the highest level of school you have completed or the highest degree you have received? Master's degree (e.g., MA, MS, Jessica, MEd, CIGAR HEAD HOLER, LAMONTE) 09/04/2022 Sexually Active Control Partners Comments Not Currently Comments No Sex and Gender Information Value Date Recorded Sex Assigned at Not on file Legal Sex Female 10:01 AM PRESS SETTER Gender Identity Not on file Sexual Orientation [...] patient's age to complete this topic Insurance [employer] Care Teams Loans Officer Relationship Specialty Start Date End Date Bobbi Carrizales [address] [place] [address] PCP - General Physician Plc Controls Engineer 06/27/21
--- OUTSIDE RECORDS SUMMARY | 2025-05-19 12:13 | XMS_ITS | Patient Health Record ---
Author Organization [facility] Address [address] [place] [phone] Care Team Providers Care Cord Tire Builder Name Role Phone Nat MENDENHALL, [facility] [phone] Reason For Referral No Information Medications Medication [...] Insured Coverage Start Date Coverage End Date [facility] [address] [place] [address] [phone] [id number] Mi Barrow Self - patient is the insured
--- OUTSIDE RECORDS SUMMARY | 2025-05-19 12:13 | XMS_ITS | Clinical Summary ---
Author Organization [facility] Address [address] [place] [address] Care Team Providers Care Hotel Yardperson Name Role Phone Harlan Shelton MD Primary Care Provider [phone] Allergies No known active allergies Medications ESTARYLLA 0.25-35 MG-MCG tablet daily. 08/18/2022 Active amoxicillin-clav ulanate (AUGMENTIN) 875-125 MG tablet Take 1 tablet (875 mg total) by mouth 2 (two) times daily. for 10 days 09/21/2022 Active Active Problems Problem Noted Date Diagnosed Date state 08/25/2022 Multinodular goiter 08/25/2022 Ulcerative proctitis 10/17/2019 H/O HELLP syndrome, currently 6 History of uterine scar from previous surgery Rh negative, antepartum 07/17/2013 Overview (08/25/2022): 2015 IMO Updt Immunizations [...] on file Legal Sex Female 2:39 PM LIVESTOCK FARMER Gender Identity Not on file Sexual Orientation Not on file Last Filed Vital Signs Vital Sign Reading Time Taken Comments Blood Pressure 102/68 08/25/2022 7:53 AM LIVESTOCK FARMER Pulse 95 08/25/2022 7:53 AM LIVESTOCK FARMER Temperature 36.6 C (97.9 F) 08/25/2022 7:53 AM LIVESTOCK FARMER Respiratory Rate 20 08/25/2022 7:53 AM LIVESTOCK FARMER Oxygen Saturation 100% 08/25/2022 7:53 AM LIVESTOCK FARMER Inhaled Oxygen Concentration - - Weight 55.8 [...] - 2024-2 6 season) 2025 12/24/2020, 12/03/2020 Influenza Adult (#1) 2025 Hepatitis A Vaccines Aged Out No long er eligible based on patient's age to complete this topic Meningococcal B Vaccine Aged Out No l [...] complete this topic Insurance AETNA Care Teams Hotel Yardperson Relationship Specialty Start Date End Date Harlan Shelton MD PCP - General OBGYN 08/16/22
== END 2025-05-19 11:39 | disposition home or self-care (01) ==
PROVIDERS: PCP Obstetrics & Gynecology Gynecology; Visit Provider Obstetrics & Gynecology Gynecology
DX: Z12.31 Encounter for screening mammogram for malignant neoplasm of breast (principal)
CPT/HCPCS: 77063; 77067